=== PATIENT | female | born 2005 | race Caucasian/White ===

== ENCOUNTER 2025-03-03 18:27 | Emergency (ER) | payer MEDICAID ==
[~2025-03-03] VITALS: Ht 154.9 cm; Wt 74.0 kg
[2025-03-03 18:29] VITALS: O2SAT 98
[2025-03-03 18:36] VITALS: BP 114/56; PULSE 85; RESP 16; TEMP 36.6; O2SAT 99
[2025-03-03] MEDS ORDERED: ACET-2708 MT (20:48)
== END 2025-03-03 21:12 | disposition home or self-care (01) ==
LOC: ER 18:27
DX: M25.572 Pain in left ankle and joints of left foot (principal); J45.909 Unspecified asthma, uncomplicated
CPT/HCPCS: 73610; 99283